=== PATIENT | male | born 1930 | race Caucasian/White ===

== ENCOUNTER 2019-04-28 11:08 | Observation (INO) | payer MEDICARE ==
[~2019-04-28] VITALS: Ht 177.8 cm; Wt 77.1 kg
[~2019-04-28 11:08] MED LIST: ASPI81EC PO; LEVOXYL PO; Prednisone20 MG PO
[2019-04-28] MEDS ORDERED: OXYC5 PO (11:36)
[2019-04-28] MEDS ORDERED: CIPR500 PO (11:36)
[2019-04-28] MEDS ORDERED: LOPE2C PO (11:37)
[2019-04-28] MEDS ORDERED: Amlodipine Bes2.5 MG PO (11:37)
[2019-04-28 12:41] LABS: BASOPHILS ABSOLUTE AUTO 0.04 K/mm3 (0.00-0.23); BASOPHILS PERCENT AUTO 0 % (0-2); EOSINOPHILS PERCENT AUTO 0 % (0-6); Hematocrit 24.6 % (37.0-53.0); Hemoglobin 8.2 g/dL (13.5-17.5); IMMATURE GRAN ABSOLUTE AUTO 0.86 K/mm3 (0.00-0.10); IMMATURE GRAN PERCENT AUTO 9 % (0-1); LYMPHOCYTES ABSOLUTE AUTO 0.57 K/mm3 (0.84-5.20); LYMPHOCYTES PERCENT AUTO 6 % (21-46); MONOCYTES ABSOLUTE AUTO 0.81 K/mm3 (0.16-1.47); MONOCYTES PERCENT AUTO 9 % (4-13); Mean Corpuscular HGB 27.1 pg (26.0-34.0); Mean Corpuscular HGB Conc 33.3 g/dL (31.5-36.5); Mean Corpuscular Volume 81 fL (80-100); NEUTROPHILS ABSOLUTE AUTO 7.22 K/mm3 (1.96-9.15); NEUTROPHILS PERCENT AUTO 76 % (41-73); NRBC ABSOLUTE 0.07 K/mm3 (0.00-0.02); NRBC Auto 0.7 /100 WBC (0.0-0.2); RDW Coefficient Variation 24.5 % (11.7-14.2); RDW Standard Deviation 68.2 fL (35.1-46.3); Red Blood Cell Count 3.03 M/mm3 (4.30-5.90)
[2019-04-28 13:11] LABS: Albumin, Blood 3.1 g/dL (3.4-5.0); Albumin/Globulin Ratio 1.1 (0.8-1.8); Bilirubin, Total 7.7 mg/dL (0.1-1.0); Bun/Creatinine Ratio 42.9 (12.0-20.0); Calcium, Blood 9.9 mg/dL (8.5-10.1); Creatinine, Blood 1.54 mg/dL (0.60-1.20); Globulin, Blood 2.8 g/dL (2.2-4.0); Potassium, Blood 4.2 mmol/L (3.5-5.5); Total Protein, Blood 5.9 g/dL (6.4-8.2)
[2019-04-28 13:27] LABS: Platelet Count 98 K/mm3 (150-400)
--- NOTE | 2019-04-28 14:20 | NUR ---
Brief meeting with patient and family. Pt denies headache or shortness of breath. Complains of tightness through abdomen and abdominal pain. He denies nausea. He has fatigue. Brief discussion with daughter that hospitalist will come to present plan of care. Palliative treatment and supportive care briefly with daughter. She is concerned about caring for him. Advised her will have care managers give her information. She thinks he will want hospice. Patient Daughter has FMLA and sick time. Advised her to contact her employer. we assisted tinoh her mother who went on hospice/ gave her our number for support will follow up after physician plan presented.
[2019-04-28 15:50] LABS: Source, Urine Clean Catch
--- NOTE | 2019-04-28 15:50 | NUR ---
notified pt primary care for daughters FEMLA assistance. faxed info to primary care.
[2019-04-28 16:05] LABS: Blood, Urine 1+ (Neg); Glucose Qualitative, Urine Neg (Neg); Ketones, Urine 1+ (Neg); Leukocyte Esterase, Urine 1+ (Neg); Nitrite, Urine Neg (Neg); Protein, Urine 2+ (Neg); Urobilinogen, Urine 2+ (Normal)
[2019-04-28 16:14] LABS: Appearance, Urine Clear (Clear); Bilirubin, Urine 2+ (Neg); Color, Urine Yellow (P-Yellow)
[2019-04-28 16:16] LABS: Bacteria Many /hpf; Hyaline Casts 0-2 /lpf (0-2); Squamous Epithelial Cells Few /hpf (Few)
--- NOTE | 2019-04-28 17:27 | NUR ---
PT PLEASANT SINCE ADMIT. EXTREMELY RAMPART. MISUNDERSTANDING IS LIKELY WHEN TALKING. ANSWERS MOST QUESTIONS WELL EXCEPT DATE. KNOWS SHOBHA, PRESIDENT. FAMILY, THAT HAS CANCER, THAT AT [facility]. WHEN HIS , TALK DIRECTLY TO HIS RT EAR. HAS HEAERING AIDS. SOME CONFUSION NOTED WITH DETAILS LIKE DATES AND MEDS. H/R IRREG, NO MURMER NOTED. NO TELE. NO PACER. LUNGS CLEAR, RESP EASY, UNLABORED ON RA. BT X4 ABD MODERATE, FIRM. TENDER. STATES LAST BM 2 DAYS. VOIDS 1 ASSST FWW TO BATHROOM. WEAK. BED IN LOW POSITION, CALL LITE IN REACH, BED ALARM ON FOR SAFETY
--- NOTE | 2019-04-28 18:26 | NUR ---
PT ATE FEW BITE DINNER, NEEDED TO GO TO URINATE IN BATHROOM. DID SO SBA LITE TOUCH WITH FWW. WALKED BACK TO BED. EYES CLOSED, RESP EASY, UNLABORED. RESTING WELL. BED IN LOW POSITION, CALL LITE IN REACH, BED ALARMON FOR SAFETY
--- NOTE | 2019-04-29 05:09 | NUR ---
SHIFT SUMMARY- PT. A&O WITH INTERMITTENT CONFUSION. SBA WITH WALKER, CALLS APPROPRIATELY. RESTED COMFORTABLY T/O THE SHIFT. NO APPARENT DISTRESS NOTED. PAIN MED GIVEN 1X THIS EVENING. PT. DENIED ANY PAIN OR DISCOMFORT T/O NIGHT. IV FLUIDS INFUSING. CALL LIGHT WITHIN REACH AND SIDE RAILS UP X2. BED ALARM ON FOR SAFETY. WILL CONT TO MONITOR.
[2019-04-29] MEDS ORDERED: ACET325 PO (14:51)
[2019-04-29] MEDS ORDERED: ONDA4 PO (14:52)
[2019-04-29] MEDS ORDERED: AMLO10 PO (14:56)
--- NOTE | 2019-04-29 16:30 | NUR ---
PATIENT DISCHARGED WITH SON AND DAUGHTER. PATIENT PUT IN OWN CLOTHES. MEDS FAXED TO [facility]. HARD SCRIPTS GIVEN TO THE DAUGHTER. PATIENT LEFT WITH DAUGHTER AND SON IN LAW. [facility] TO ASSUME CARE OF PATIENT UPON DISCHARGE HOME. PATIENT KNOWLEDGEABLE OF THIS CARE HIS HAD IT PRIOR TO HER PASSING.
== END 2019-04-29 15:24 | disposition hospice, home (50) ==
LOC: ER 11:08 → MEDS 11:09
PROVIDERS: Emergency Medicine; ADMIT Internal Medicine
DX: C20 Malignant neoplasm of rectum (principal); C78.7 Secondary malignant neoplasm of liver and intrahepatic bile duct; N17.9 Acute kidney failure, unspecified; E86.0 Dehydration; K76.89 Other specified diseases of liver; I10 Essential (primary) hypertension; E80.6 Other disorders of bilirubin metabolism; Z85.46 Personal history of malignant neoplasm of prostate
CPT/HCPCS: 36415; 74176; 80053; 81001; 83690; 85025; 87086; 96360; 96361; 99285-25; G0378; J7030